=== PATIENT | female | born 1965 ===

== ENCOUNTER → 2019-09-22 12:00 | Outpatient (BNVA) | payer MEDICAID, SELFPAY | PROVIDERS: Family Provider Internal Medicine; PCP Surgery; Visit Provider Nurse Practitioner Family | DX: C91.10 Chronic lymphocytic leukemia of B-cell type not having achieved remission (principal); J44.9 Chronic obstructive pulmonary disease, unspecified | CPT/HCPCS: 36415; 80053; 85025 ==

== ENCOUNTER 2020-08-22 08:49 | Outpatient (CLI) | payer MEDICAID, SELFPAY ==
--- NOTE | 2020-08-22 09:30 | CT_ITS ---
WS: [id number] CT NECK WITH CONTRAST HISTORY: C91.10 - Chronic lymphocytic leukemia of B-cell type not having achieved remission TECHNIQUE: Contiguous 5 mm axial images are performed through the neck with intravenous contrast. Sag ittal and coronal reformats are also submitted. All CT scans at [facility] use at least o ne of these dose optimization techniques: automated exposure control; mA and/or kV adjustment per pat ient size (includes targeted exams where dose is matched to clinical indication); or iterative recons truction. CONTRAST: CONTRAST: Omnipaque 300; 95 mL IV. DLP: 1553.54 mGycm COMPARISON: None available. Nasopharynx, oropharynx, hypopharynx and larynx are unremarkable. No soft tissue masses or abnormal e nhancement. Torus tubarius and fossa of Rosenmuller and parapharyngeal fat are normal. There are numerous bilateral cervical chain lymph nodes. Majority of the lymph nodes are less than a centimeter. Lymph nodes extend into level 1, level 2, level 3, level 4 and level 5. There are additio nal but more enlarged lymph nodes in the supraclavicular and axillary locations. The largest lymph no de is posterior to the LEFT clavicle measuring 3.0 x 1.9 cm. There are additional axillary lymph node s which also appear enlarged. LEFT axillary lymph node measures 3.0 x 1.7 cm. Thyroid gland and salivary glands are normally enhancing with no masses. Mild enlargement and subster nal extension of the thyroid. Reversal the normal cervical lordosis centered at C5-6. Visualized portions of the skull base demonstrate no abnormalities. Orbits and globes are within norm al limits. No soft tissue masses. Visualized paranasal sinuses and mastoid air cells are normal. Lung apices are clear. Right-sided Mediport. CT/CT neck w con* [id number] IMPRESSION: 1. Bilateral cervical chain numerous lymph nodes. The number of the lymph node s is increased. Majority of these lymph nodes measure less than a centimeter. 2. More enlarged lymph nodes in the supraclavicular and axillary locations. Th e largest lymph node is LEFT supraclavicular measuring 3.0 x 1.9 cm. 3. Right-sided Mediport. 4. Mild thyroid enlargement.
--- NOTE | 2020-08-22 09:30 | CT_ITS ---
WS: [id number] CT CHEST WITH INTRAVENOUS CONTRAST HISTORY: C91.10 - Chronic lymphocytic leukemia of B-cell type not having achieved remission TECHNIQUE: Contiguous 5 mm axial imaging performed on the thorax. Coronal and sagittal reformats are submitted. All CT scans at [facility] use at least one of these dose optimization techniq ues: automated exposure control; mA and/or kV adjustment per patient size (includes targeted exams wh ere dose is matched to clinical indication); or iterative reconstruction. CONTRAST: Omnipaque 300; 95 mL IV. DLP: 546.2 mGycm COMPARISON: None available. Lungs and central airway: 5 mm noncalcified nodule subpleural RIGHT lower lobe, image 29 series 3. No additional nodules or pneumonia. Pleura: Normal. No pleural effusion. Heart and pericardium: Normal size heart with no pericardial effusion. Mediastinum and ky: No mediastinum or hilar adenopathy. Vessels: Normal size aortic and pulmonary artery. No coronary artery calcifications. Chest wall and lower neck: Subcarinal lymph nodes were better seen on the neck CT. There are numerous mildly enlarged lymph nodes in the RIGHT axilla. Largest lymph nodes with a short axis diameter of 1 .3 to 1.4 cm in each axilla. The number of the lymph nodes is increased. Upper abdomen: No retrocrural lymph nodes. No lymph nodes at the celiac axis. Soft tissue in the LEFT upper abdomen is probably small bowel. Without oral contrast and further imaging cannot exclude a cl uster of lymph nodes. Prior cholecystectomy. Entire spleen is not imaged. Anterior posterior measurem ent spleen is 19 cm which is large. LEFT adrenal nodule measures 2.2 cm. Osseous structures: No destructive process. CT/CT chest w con* [id number] IMPRESSION: 1. Numerous mildly enlarged axillary lymph nodes. These lymph nodes measure up to 1.3 to 1.4 cm in short axis diameter. 2. No mediastinal or hilar lymph nodes. 3. Spleen is incompletely included on this study but appears enlarged with an anterior posterior measurement of 19 cm. 4. Prior cholecystectomy. 5. Subpleural RIGHT lower lobe 5 mm nodule. 6. LEFT adrenal nodule with a maximum diameter of 2.2 cm. May be an adenoma. 7. Consider [address] follow-up of the chest to include the upper abdomen.
[2020-08-22] MEDS: iohexol 300 mg/mL 100 mL Btl IV (10:24)
== END 2020-08-22 08:50 | disposition home or self-care (01) ==
PROVIDERS: PCP Nurse Practitioner Family; Visit Provider Surgery
DX: C91.10 Chronic lymphocytic leukemia of B-cell type not having achieved remission (principal); E04.9 Nontoxic goiter, unspecified; D44.12 Neoplasm of uncertain behavior of left adrenal gland; R91.1 Solitary pulmonary nodule; Z90.49 Acquired absence of other specified parts of digestive tract; R59.9 Enlarged lymph nodes, unspecified
CPT/HCPCS: 70491; 71260; Q9967

== ENCOUNTER 2020-09-13 12:04 | Day surgery (SDC) | payer MEDICAID, SELFPAY ==
[2020-09-12 14:30] VITALS: BMI 53.1
--- NOTE | 2020-09-13 13:30 | US_ITS ---
WS: [id number] ULTRASOUND GUIDED BIOPSY ABNORMAL LEFT SUPRACLAVICULAR LYMPH NODE. HISTORY: R59.0 - Localized enlarged lymph nodes Procedure, risks, and complications are explained to the patient. Consent was obtained. Skin is clean sed with ChloraPrep and anesthetized with 1% buffered lidocaine. Abnormal hypoechoic lymph node which is rounded in the LEFT supraclavicular region is targeted. Small dermatome is made. 20-gauge core biopsies are performed with a Temno needle. No complications are en countered. Specimen is placed in saline as requested by pathology. US/US biopsy lymph node [id number] IMPRESSION: 1. Uncomplicated ultrasound-guided core biopsy abnormal lymph node LEFT suprac lavicular region. 2. Pending pathology.
[2020-09-13 14:00] VITALS: BP 181/94; PULSE 82; RESP 18; TEMP 36.4; O2SAT 96
[2020-09-19 06:43] LABS: Miscellaneous Test See Scanned Lab Rpt
== END 2020-09-13 14:15 | disposition home or self-care (01) ==
PROVIDERS: Radiology Diagnostic Radiology; PCP Nurse Practitioner Family; Visit Provider Surgery
DX: R59.0 Localized enlarged lymph nodes (principal)
CPT/HCPCS: 38505; 76942; 88305

== ENCOUNTER 2021-07-31 04:24 | Emergency (ER) | payer MEDICAID, SELFPAY ==
--- NOTE | 2021-07-31 04:25 | XRR_ITS ---
PROCEDURE INFORMATION: Exam: XR Chest Exam date and time: 07/31/2021 4:32 AM Age: 56 years old Clinical indication: Pain; Chest pressure; Prior surgery; Surgery date: 6+ months; Surgery type: Port; Additional info: Cp TECHNIQUE: Imaging protocol: XR of the chest. Views: 1 view. COMPARISON: CT chest w con* [id number] 08/22/2020 10:16 AM FINDINGS: Tubes, catheters and devices: Right MediPort in good position. Lungs: Unremarkable. No consolidation. Pleural spaces: Unremarkable. No pleural effusion. No pneumothorax. Heart/Mediastinum: Unremarkable. No cardiomegaly. Bones/joints: Unremarkable. XR/XR chest 1V portable [id number] IMPRESSION: No acute disease.
[2021-07-31 04:26] VITALS: BP 170/78; PULSE 88; RESP 18; TEMP 36.9; O2SAT 94; BMI 53.1
--- NOTE | 2021-07-31 04:54 | ECG_ITS ---
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 Measurements Intervals [place] Rate: 91 P: 62 [place]: 187 QRS: 90 QRSD: 113 T: 43 QT: 383 QTc: 473 Interpretive Statements SINUS RHYTHM LOW QRS VOLTAGE IN PRECORDIAL LEADS [QRS DEFLECTION < 1.0 mV IN CHEST LEADS] PROBABLE INFERIOR MYOCARDIAL INFARCTION , PROBABLY OLD [35 ms Q WAVE IN II/aVF] POSSIBLE ANTEROLATERAL MYOCARDIAL INFARCTION , PROBABLY OLD [30 ms Q WAVE IN I/aVL/V3-V6] Compared to ECG 07/31/2021 06:15:57 Low QRS voltage now present Myocardial infarct finding still present Electronically Signed On 07-31-2021 8:59:43 CDT by Jacky Hancock M.D. [id number]
[2021-07-31 05:03] VITALS: RESP 16
[2021-07-31] MEDS: ondansetron 2 mg/ML SDV 2 mL 4 MG IVP (05:03)
[2021-07-31] MEDS: fentaNYL 50 mcg/mL INJ 2mL 100 MCG IVP (05:03)
--- NOTE | 2021-07-31 05:12 | ED_ITS ---
HPI - Chest Pain General: Chief Complaint: Chest Pain Stated Complaint: CO Time Seen by Provider: 07/31/21 04:26 Source: patient and family History of Present Illness: 56-year-old female. She has a history of splenic infarction. She presents with epigastric and chest pain radiating into her back. She says it has been going on for 3 days. Mild increase in pain with deep breathing. She has been short of breath. She has had a mild cough. No fever or chills. Mild increase in lower leg swelling. MD complaint: chest pain Pertinent past history: other Onset (ago): day(s) (3) Timing of current episode: constant Onset: during rest Pain location: substernal and epigastric Pain radiation: back Severity: severe Relieving factors: nothing Exacerbating factors: exertion and inspiration Associated symptoms: Reports abdominal pain (Chronic), dyspnea, leg edema and nausea; Deny fever(s), palpitations or vomiting Treatment prior to arrival: none Review of Systems Const: Denies: fever(s) or chills ENMT: Denies: throat pain Card: Reports: chest pain; Denies: palpitations Resp: Reports: dyspnea; Denies: productive cough or non-productive cough GI: Reports: abdominal pain (Chronic) and nausea; Denies: vomiting Musc: Reports: back pain PFSH ED PFSH: Medical History CLL (chronic lymphocytic leukemia) Patient diagnosed in 2014 Stage IV since 2018 COPD (chronic obstructive pulmonary disease) Lupus Migraine Port-A-Cath in place Supraclavicular lymphadenopathy Vitamin D deficiency Surgical History History of hysterectomy History of laparoscopic cholecystectomy History of lymph node biopsy left axcilla History of tonsillectomy Port-A-Cath in place Family History (Updated 08/22/20 @ 11:17 by Jasson Olson) Other CAD (coronary artery disease) Diabetes Hypertension Denies family history of Chronic kidney disease (CKD) Anesthesia complication Bleeding disorder Lung disease Cancer Social History Smoking and tobacco status: current every day smoker Smoking risk assessment/counseling performed?: No Alcohol intake: never Desire information about alcohol rehabilitation?: No Counseling given: No Desire information about substance/drug rehabilitation?: No Counseling given: No History of recent travel: No Physical Exam Const: GENERAL APPEARANCE: cooperative and ill appearing; not comfortable HENMT: COMMON NORMALS: normocephalic, atraumatic and Normal external nose present HEAD & SCALP: normocephalic and atraumatic NOSE: Normal external nose present Eye: COMMON NORMALS: Equal, round and reactive pupils present and EOMs intact bilaterally PUPIL: Yes Equal, round and reactive pupils present Chest: COMMONS NORMALS: normal inspection of the chest CHEST: Yes tenderness (Left anterior chest wall) Resp: COMMON NORMALS: normal respiratory effort, No use of accessory muscles and clear to auscultation bilaterally AUSCULTATION: clear to auscultation bilaterally Cardio: COMMON NORMALS: regular rate and regular rhythm RATE: regular rate RHYTHM: regular rhythm GI: COMMON NORMALS: Normal to inspection, nondistended, normoactive bowel dimple nds present and Soft to palpation PALPATION: Yes Soft to palpation and Yes Tenderness to palpation present (GI) (Epigastric) Details: LUQ Extremity: GENERAL: Yes edema Neuro: CORBY COMA SCALE: document GCS findings Corby coma scale eye opening: Spontaneous [place] coma scale verbal response: Orientated Corby coma scale motor response: Obey commands [place] coma scale total score: 15 Course Vital Signs: Vital signs: Vital Signs Temperature 98.4 F 07/31/21 04:26 Pulse Rate 86 07/31/21 05:48 Respiratory Rate 16 07/31/21 05:03 Blood Pressure 170/78 07/31/21 04:26 Pulse Oximetry 94 07/31/21 05:48 MDM - Chest Pain Medical Decision Making 56-year-old lady with chest and epigastric discomfort. Her white blood cell count is 152. Hemoglobin is 11.9. Platelet count is 106. Her sodium is 126. Creatinine is 2.2. Her sugar is 61 bicarbonate of 12. She is bolused 2 more liters after initial liter. Given bicarbonate. Her D-dimer is 2900. She will have to have a CTA of the chest along with abdomen pelvis follow-through. She will be checked out to Dr. Damico at shift change, who will follow up on CT findings. She is covered with antibiotics, as her lactic acid is also elevated. She will likely need transfer for the impressive leukocytosis. Lab Data : 07/31/21 05:24 07/31/21 05:24 Radiology Impressions Chest X-Ray 07/31/21 04:25 IMPRESSION: No acute disease. Laboratory Results WBC 152.9 10^3/uL (4.0-10.0) H* 07/31/21 05:24 RBC 4.39 10^6/uL (4.1-5.3) 07/31/21 05:24 Hgb 11.9 g/dL (11.5-15.3) 07/31/21 05:24 Hct 41.6 % (37.0-47.0) 07/31/21 05:24 MCV 94.8 fl (81-99) 07/31/21 05:24 MCH 27.1 pg (28.0-34.0) L 07/31/21 05:24 MCHC 28.6 g/dL (30.0-36.0) L 07/31/21 05:24 RDW 17.4 % (12.1-15.1) H 07/31/21 05:24 Plt Count 106 10^3/cmm (130-400) L 07/31/21 05:24 MPV 12.6 fL (7.4-10.4) H 07/31/21 05:24 Lymph % (Auto) Not Reportable 07/31/21 05:24 Alfalfa % (Auto) Not Reportable 07/31/21 05:24 Lymph # (Auto) Not Reportable 07/31/21 05:24 Alfalfa # (Auto) Not Reportable 07/31/21 05:24 Total Counted 100 (0-100) 07/31/21 05:24 Atypical Lymphs % 6.0 % (0-5) H 07/31/21 05:24 Absolute Neutrophils 19.9 10^3/cmm (1.4-6.5) H 07/31/21 05:24 Segmented Neutrophils 9 % 07/31/21 05:24 Abs Segm Neuts (Man) 13.8 10/cmm (1.6-7.1) H 07/31/21 05:24 Band Neutrophils 4.0 % 07/31/21 05:24 Abs Band Neuts (Man) 6.1 10^3/cmm (0.0-1.2) H 07/31/21 05:24 Absolute Lymphocytes 128.4 10^3/cmm (1.2-3.4) H 07/31/21 05:24 Lymphocytes (Manual) 78 % 07/31/21 05:24 Monocytes (Manual) 0.0 % 07/31/21 05:24 Absolute Monocytes 0.0 10^3/cmm (0.1-0.6) L 07/31/21 05:24 Eosinophils (Manual) 1 % 07/31/21 05:24 Absolute Eosinophils 1.5 10^3/cmm (0.0-0.7) H 07/31/21 05:24 Basophils (Manual) 0.0 % 07/31/21 05:24 Absolute Basophils 0.0 10^3/cmm (0.0-0.2) 07/31/21 05:24 Myelocytes 2.0 % 07/31/21 05:24 Smudge Cells 2+ H 07/31/21 05:24 Platelet Estimate Decreased (Normal) L 07/31/21 05:24 Stomatocytes Trace 07/31/21 05:24 D-Dimer 2.89 ug/mIFEU (0-0.59) H 07/31/21 05:24 Sodium 126 mmol/L (136-145) L 07/31/21 05:24 Potassium 5.1 mmol/L (3.5-5.1) 07/31/21 05:24 Chloride 88 mmol/L (98-107) L 07/31/21 05:24 Carbon Dioxide 12 mmol/L (22-29) L 07/31/21 05:24 Anion Gap 31.1 (5-19) H 07/31/21 05:24 BUN 20 mg/dL (6-20) 07/31/21 05:24 Creatinine 2.2 mg/dL (0.5-0.9) H 07/31/21 05:24 GFR Calculation 23.3 mL/min (90-130) L 07/31/21 05:24 Glucose 61 mg/dL (65-115) L 07/31/21 05:24 Calculated Osmolality 263 mOsm/kg (285-295) L 07/31/21 05:24 Lactate 8.6 mmol/L (0.5-2.2) H* 07/31/21 05:24 Calcium 10.5 mg/dL (8.5-10.5) 07/31/21 05:24 Total Bilirubin 5.7 mg/dL (0.15-1.2) H 07/31/21 05:24 AST 210 U/L (0-32) H 07/31/21 05:24 ALT 78 U/L (0-33) H 07/31/21 05:24 Alkaline Phosphatase 610 IU/L (35-105) H 07/31/21 05:24 Troponin T Baseline 33 ng/L (0-10) H 07/31/21 05:24 NT-Pro-B Natriuret Pep 762 pg/mL (0-125) H 07/31/21 05:24 Total Protein 5.4 g/dL (6.6-8.7) L 07/31/21 05:24 Albumin 3.6 g/dL (3.5-5.2) 07/31/21 05:24 Globulin 1.8 g/dL (1.3-4.6) 07/31/21 05:24 Lipase 22 U/L (13-60) 07/31/21 05:24 Discharge Plan Discharge Condition: Stable Prescriptions: No Action oxycodone [OxyContin] 60 mg tablet,oral only,ext.rel.12 hr 60 mg PO BID 0RF oxycodone 20 mg tablet 20 mg PO Q4H PRN (Reason: Pain) 0RF ondansetron HCl [Zofran] 4 mg tablet 4 mg PO Q6H 0RF baclofen 10 mg tablet 10 mg PO TID 0RF Imbruvica 140 mg capsule 280 mg PO DAILY 0RF Rx Instructions: take at same time(s) each day; swallow whole with water; do not crush, chew, break, dissolve, cut, or open cholecalciferol (vitamin D3) 1,250 mcg (50,000 unit) capsule 1,250 mcg PO DAILY 0RF sumatriptan succinate [Imitrex] 50 mg tablet 50 mg PO Q2H PRN (Reason: Headache) 0RF Rx Instructions: do not exceed 4 doses per 24 hrs ferrous sulfate 325 mg (65 mg iron) tablet,delayed release (DR/EC) 325 mg PO DAILY 0RF Child Multivitamins Tablet,Chewable 1 tab PO DAILY 0RF ipratropium-albuterol 0.5 mg-3 mg(2.5 mg base)/3 mL solution for nebulization 3 ml INHALATION Q4H PRN (Reason: wheezing) 30 Days Qty: 180 2RF albuterol sulfate [ProAir HFA] 90 mcg/actuation HFA aerosol inhaler 1 inh INHALATION Q6H PRN (Reason: shortness of breath or wheezing) Qty: 8.5 5RF Combivent Respimat 20-100 mcg/actuation mist 1 puff inhalation Q6H 30 Days Qty: 4 11RF epinephrine 0.3 mg/0.3 mL auto-injector 0.3 mg IM Q10M PRN (Reason: anaphylaxis) 30 Days Qty: 2 5RF Rx Instructions: for 2 doses Referrals: MIGUELINA Vega, ENLISTED AIRCREW/AERIAL OBSERVER/GUNNER [Primary Care Provider] - Coding Level of Care Code ED Melter Caster for Chg Fwd Exam Comprehensive
[2021-07-31 05:48] VITALS: PULSE 86; O2SAT 94
[2021-07-31 05:51] LABS: Troponin(5th) Baseline 33 ng/L (0-10)
[2021-07-31 05:55] LABS: D Dimer 2.89 ug/mIFEU (0-0.59)
[2021-07-31 05:56] LABS: Hematocrit 41.6 % (37.0-47.0); Hemoglobin 11.9 g/dL (11.5-15.3); Mean Corpuscular HGB Conc 28.6 g/dL (30.0-36.0); Mean Corpuscular Hemoglobin 27.1 pg (28.0-34.0); Mean Corpuscular Volume 94.8 fl (81-99); Mean Platelet Volume 12.6 fL (7.4-10.4); Platelet Count 106 10^3/cmm (130-400); Red Blood Count 4.39 10^6/uL (4.1-5.3); Red Cell Distribution Width 17.4 % (12.1-15.1)
[2021-07-31 06:01] LABS: Alanine Aminotransferase 78 U/L (0-33); Albumin Level 3.6 g/dL (3.5-5.2); Alkaline Phosphatase 610 IU/L (35-105); Anion Gap 31.1 (5-19); Aspartate Amino Transferase 210 U/L (0-32); Blood Urea Nitrogen 20 mg/dL (6-20); Calcium 10.5 mg/dL (8.5-10.5); Carbon Dioxide 12 mmol/L (22-29); Chloride 88 mmol/L (98-107); Globulin 1.8 g/dL (1.3-4.6); Glomerular Filtration Rate 23.3 mL/min (90-130); Glucose 61 mg/dL (65-115); Lipase 22 U/L (13-60); NT Pro B Type Natriuretic Pept 762 pg/mL (0-125); Osmolality Calculated 263 mOsm/kg (285-295); Potassium 5.1 mmol/L (3.5-5.1); Sodium 126 mmol/L (136-145); Total Bilirubin 5.7 mg/dL (0.15-1.2); Total Protein 5.4 g/dL (6.6-8.7)
[2021-07-31 06:10] LABS: Lactate (Lactic Acid level) 8.6 mmol/L (0.5-2.2)
--- NOTE | 2021-07-31 06:11 | PC.NURSE ---
Critical lab: Lactic acid 8.[address] Kumar.
--- NOTE | 2021-07-31 06:17 | CTR_ITS ---
PROCEDURE INFORMATION: Exam: CTA Chest With Contrast Exam date and time: 07/31/2021 6:48 AM Age: 56 years old Clinical indication: Pain; Left-sided; Prior surgery; Surgery type: Port; Patient HX: CLL cancer; Additional info: Cp, elevated lft, epigastric pain TECHNIQUE: Imaging protocol: Computed tomographic angiography of the chest with contrast. 3D rendering (Not supervised by radiologist): MIP and/or 3D reconstructed images were created by the technologist. Radiation optimization: All CT scans at this facility use at least one of these dose optimization techniques: automated exposure control; mA and/or kV adjustment per patient size (includes targeted exams where dose is matched to clinical indication); or iterative reconstruction. Contrast material: VISI 320; Contrast volume: 75 ml; Contrast route: INTRAVENOUS (IV); COMPARISON: CT chest w con* [id number] 08/22/2020 10:16 AM RADIATION DOSE METRICS: Total DLP (mGy-cm): 1074.27 FINDINGS: Pulmonary arteries: No pulmonary emboli identified. Aorta: No thoracic aortic aneurysm or dissection identified. Lungs: Mild patchy atelectasis in the right lower lobe and left lower lobe. Pleural spaces: No pneumothorax or pleural effusion. Heart: Heart size within normal limits. Lymph nodes: No enlarged or abnormal appearing mediastinal/hilar lymph nodes identified. Severe bilateral axillary lymphadenopathy, increased from prior study. Sample enlarged node in the right axilla measures 1.9 cm short axis on series 4, image 109. Sample enlarged node in the left axilla measures 4.1 cm short axis on series 4, image 131. These findings are consistent with lymphoma. Bones/joints: Unremarkable. No acute fracture. Soft tissues: See Lymph nodes section. Other findings: Images of the upper abdomen were reviewed. Splenomegaly is present (partially visualized). This is increased from prior study. Periaortic and celiac lymphadenopathy noted. If additional or more detailed information is needed, an addendum can be generated on request. CT/CT angio chest PE protcl [id number] IMPRESSION: 1. No pulmonary emboli identified. 2. Severe bilateral axillary lymphadenopathy, increased from prior study. Splenomegaly, periaortic, and celiac lymphadenopathy. These findings are consistent with lymphoma.
[2021-07-31] MEDS: sodium bicarbonate 8.4% 1 mEq/mL 50mL Syr 50 MEQ IVP (06:33)
[2021-07-31] MEDS: levofloxacin-dextrose 5 % 500 MG/100 ML PREMIX 100 MG IV (06:35)
[2021-07-31] MEDS: sodium chloride 0.9% 1,000 ML 999 ML IV ×2 (06:35→07:36)
[2021-07-31 06:42] LABS: White Blood Count 152.9 10^3/uL (4.0-10.0)
[2021-07-31 06:43] LABS: Slide Review Slide Review Perform
[2021-07-31 06:46] LABS: Absolute Eosinophils 1.5 10^3/cmm (0.0-0.7); Absolute Segmented Neutrophil 13.8 10/cmm (1.6-7.1); Band Neutrophils Absolute 6.1 10^3/cmm (0.0-1.2); Eosinophils 1 %; Lymphocytes 78 %; Lymphocytes Absolute 128.4 10^3/cmm (1.2-3.4); Segmented Neutrophils 9 %; Total Cells Counted 100 (0-100)
[2021-07-31 06:48] LABS: Absolute Neutrophil 19.9 10^3/cmm (1.4-6.5); Platelet Estimate Decreased (Normal); Smudge Cells 2+; Stomatocytes Trace
--- NOTE | 2021-07-31 06:54 | ECG_ITS ---
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 Measurements Intervals [place] Rate: 88 P: 62 FL: 181 QRS: 68 QRSD: 110 T: 26 QT: 365 QTc: 442 Interpretive Statements SINUS RHYTHM PROBABLE INFERIOR MYOCARDIAL INFARCTION , PROBABLY OLD [35 ms Q WAVE IN II/aVF] POSSIBLE ANTEROLATERAL MYOCARDIAL INFARCTION , OF INDETERMINATE AGE [30 ms Q WAVE IN I/aVL/V3-V6] No previous ECG available for comparison Electronically Signed On 07-31-2021 9:03:41 CDT by Jacky aHncock M.D. [id number]
[2021-07-31] MEDS: iodixanol 320 mg/mL 100mL Btl IV ×2 (06:55→06:56)
--- NOTE | 2021-07-31 07:39 | CT_ITS ---
WS: [id number] CT ABDOMEN AND PELVIS NONCONTRAST No additional contrast was provided for this examination. Patient was recently injected with IV contr ast for a pulmonary CT angiogram. HISTORY: Abdominal pain. History of CLL. TECHNIQUE: Imaging performed through the abdomen and pelvis. Coronal and sagittal reformats are submi tted. All CT scans at [facility] use at least one of these dose optimization techniques: auto mated exposure control; mA and/or kV adjustment per patient size (includes targeted exams where dose is matched to clinical indication); or iterative reconstruction. DLP: 1875.21 mGy.cm COMPARISON: Prior pulmonary angiogram. Lower thorax: Lung bases are clear. Visualized heart is normal. No hiatal hernia. Liver: Marked enlargement of the liver with low attenuation throughout. Liver measures approximately 27 cm in length. No intrahepatic dilatation. No mass identified. This study is inadequate to evaluate the portal vein. Gallbladder: Prior cholecystectomy. Limited visualization of the common bile duct but no abnormality identified. Pancreas: Normal size and attenuation. Normal pancreatic duct. No pancreatitis or mass. Spleen: Marked enlargement of the spleen measuring 20 cm in length. Spleen is enlarged causing mass e ffect upon the adjacent organs. No mass within the spleen. Adrenal glands: The adrenals are poorly visualized. There are multiple lymph nodes surrounding the ad renal glands. Small adenomas cannot be excluded. Right kidney: Normal size kidney. There are several low-attenuation masses within the kidney with Barry nsfield units are slightly elevated. No obstruction. Left kidney: Normal size kidney. There are a few cortical hypodensities which cannot be further clinton cterized. Aorta: Mild atherosclerosis aorta. Extensive lymphadenopathy is noted throughout the lower thorax, abdomen and pelvis. LEFT retrocrural lymph node measures 1.8 cm at the GE junction. There are additional numerous retrocrural lymph nodes noted bilaterally. Extensive lymphadenopathy at multiple stations within the abdomen and pelvis. Thes e lymph nodes would be better evaluated with IV and oral contrast. Gastrosplenic lymph node measures 3.3 cm. Numerous lymph nodes surrounding the celiac axis. Periaortic, aortocaval and precaval lymph n odes are identified. Largest lymph node measures up to 1.9 cm. Additional small scattered mesenteric lymph nodes. There are additional lymph nodes in the inguinal regions bilaterally. These lymph nodes are small. Larger lymph nodes along the iliac chains and obturator lymph nodes. Largest lymph node in the pelvis measures approximately 3.1 cm in the LEFT obturator region. Large distal RIGHT iliac lymp h node measures 2.1 cm. GI tract: Stomach is not distended. There is no GI tract obstruction. The appendix is normal. A few d iverticula in the distal colon. Abdominal wall: Mild diffuse soft tissue anasarca. There is a very small supraumbilical hernia contai ovidio fat only. Pelvis: No free fluid. Again noted are the lymph nodes that were recently described. Calcified mass i n the RIGHT pelvis which is inseparable from the bladder. Mass measures 3.0 x 2.1 cm. Patient is stat us post hysterectomy. Osseous structures: Unremarkable. CT/CT abdomen pelvis wo con [id number] IMPRESSION: 1. Extensive lymphadenopathy throughout the lower thorax, abdomen and pelvis a s described above. Consistent with recurrent lymphoma. The extent of the lympha denopathy would be better evaluated with IV and oral contrast. 2. Marked splenomegaly and hepatomegaly. 3. Prior cholecystectomy. 4. Calcified mass in the LEFT adnexa. May be related to the ovary or prior div erticulum. 5. No ascites. 6. Indeterminate bilateral renal masses. These may be complex cysts.
[2021-07-31 07:44] VITALS: RESP 18
[2021-07-31] MEDS: morphine 4 mg/mL SDV 1 mL IVP (07:44)
[2021-07-31 08:04] LABS: Troponin 5 2HR 31.61 ng/L (0-10)
[2021-07-31 08:10] LABS: Troponin 5 2HR Delta -1.39 ABS# (0-10)
[2021-07-31 09:51] VITALS: BP 115/75; PULSE 92; RESP 18; O2SAT 93
--- NOTE | 2021-07-31 10:06 | PC.NURSE ---
Pt wants to leave AMA and signs AMA form. Pt is agreeable to go to for continued inpatient oncology care but does not want to go by EMS. Called patient report to BILLY Sánchez, at . Pt understands that she will have to go through the ER at for admission.
== END 2021-07-31 10:46 | disposition left against medical advice (07) ==
PROVIDERS: Emergency Medicine; Emergency Provider Family Medicine; PCP Nurse Practitioner Family
DX: R07.9 Chest pain, unspecified (principal); Z85.6 Personal history of leukemia; J44.9 Chronic obstructive pulmonary disease, unspecified; F17.210 Nicotine dependence, cigarettes, uncomplicated
CPT/HCPCS: 71045; 71275; 74176; 80053; 80503; 83605; 83690; 83880; 84484; 85007; 85025; 85378; 93005; 96361; 96365; 96375; 99284; J1956; J2270; J2405; J3010; J7030; Q9967